=== PATIENT | female | born 1945 | race African-American/Black ===

== ENCOUNTER 2018-08-15 06:18 | Day surgery (SDC) | payer MEDICARE ==
[2018-08-15 06:42] VITALS: BMI 25.5
[2018-08-15] MEDS ORDERED: LIDOCAINE HCL 1%, 10 MG/ML (20ML VIAL) ONE (07:11)
[2018-08-15] MEDS ORDERED: DEXTROSE 50%-WATER - 25 GM/50 ML VIAL ONE (07:17)
[2018-08-15] MEDS ORDERED: PROPOFOL 20 ML ONE ×2 (07:25→09:35)
[2018-08-15] MEDS ORDERED: MIDAZOLAM HCL 2 MG/2 ML SINGLE DOSE VIAL ONE (07:26)
[2018-08-15] MEDS ORDERED: LIDOCAINE HCL/PF 2% SDV 5ML VIAL ONE (07:28)
[2018-08-15] MEDS ORDERED: SODIUM CHLORIDE 0.9% P/F 10 ML VIAL IJ ONE (07:28)
[2018-08-15] MEDS ORDERED: ceFAZolin SODIUM 1 GM VIAL ONE (07:28)
[2018-08-15] MEDS ORDERED: LIDOCAINE HCL 1%, 10 MG/ML (20ML VIAL) NR ONE ×2 (07:32→09:40)
[2018-08-15] MEDS ORDERED: BUPIVACAINE HCL/PF (5 MG/ML) 30 ML VIAL IJ ONE ×2 (07:33→09:40)
--- NOTE | 2018-08-15 09:07 | HP ---
Satellite H - Chief Complaint Chief Complaint: left wrist pain - Past Medical History Allergies/Adverse Reactions: Allergies Allergy/AdvReac Type Severity Reaction Status Date / Time No Known Allergies Allergy Verified 08/15/18 06:42 - Current Medications Current Medications: Home Medications Medication Instructions Recorded Atorvastatin Ca [Lipitor] 20 mg PO HS 01/16/16 Lisinopril [Prinivil] 10 mg PO DAILY 01/16/16 Cymbalta 10 mg PO DAILY 08/15/18 Glyburide-Metformin 5-500 mg 1 tab PO BID 08/15/18 Humulin 70/30 Kwikpen 8 units SCJ ONCE 08/15/18 Hydrocodone/Acetaminophen 1 each PO Q6H #20 tablet MDD 4 08/15/18 [Hydrocodone-Acetamin 5-325 mg] Insulin NPH Hum/Reg Insulin Hm 8 units SCJ DAILY 08/15/18 [Humulin 70/30 Kwikpen] Lantus 15 units SCJ HS 08/15/18 Satellite Physical Exam - Physical Examination Vital Signs: Vital Signs Period Temp Pulse Resp BP Sys/Perez Pulse Ox Last 24 Hr 98.2 F-98.2 F 100-100 20-20 101-101/71-71 100 General Appearance: Well Nourished, Well Developed, Alert & Oriented x3 ENT: Clear Lung: Normal air movement Heart: Regular rate & rhythm Extremities: Other (left wrist- + mass, + ttp 1st dorsal wrist compartment, + finkelsteins, nvi) Neurological: Intact, Alert, Oriented Satellite Impression/Plan - Impression/Plan Impression: left wrist ganglion, dequervains Operative Procedure: left wrist mass excision, dequervains release Date to be Performed: 08/15/18
[2018-08-15] MEDS ORDERED: KETOROLAC TROMETHAMINE 30 MG/1 ML VIAL ONE (09:31)
[2018-08-15] MEDS ORDERED: ceFAZolin SODIUM 1 GM VIAL IVPB ONE (09:32)
[2018-08-15] MEDS ORDERED: oxyCODONE HCL 5 MG TABLET PO PRN (09:51)
[2018-08-15] MEDS ORDERED: ONDANSETRON 4 MG/2 ML VIAL IVPUSH PRN (09:51)
[2018-08-15] MEDS ORDERED: LACTATED RINGERS SOLUTION 1,000 ML IV SCH (10:00)
--- NOTE | 2018-08-15 10:13 | OP ---
Operative Note - Note: Operative Date: 08/15/18 Pre-Operative Diagnosis: left Dequervain's and ganglio cyst Operation: left Dequervain's release, tendon sheath excision, ganglion cyst excision Post-Operative Diagnosis: Same as Pre-op Surgeon: Don Hardy Anesthesiologist/[employer] SUPERVISOR: Fawad Kaiser Anesthesia: Local, MAC Specimens Removed: ganglion cyst, tendon sheath Estimated Blood Loss (mls): 0 Drains, Volume Out (mls): 0 Blood Volume Replaced (mls): 0 Fluid Volume Replaced (mls): 500 Operative Report Dictated: Yes
--- NOTE | 2018-08-15 11:00 | SPEC ---
DATE OF OPERATION: 08/15/2018 PREOPERATIVE DIAGNOSES: Left De Quervain tenosynovitis and ganglion cyst. POSTOPERATIVE DIAGNOSES: Left De Quervain tenosynovitis and ganglion cyst. PROCEDURE: Left De Quervain release, tendon sheath excision, ganglion cyst excision. SURGEON: Don Hardy M.D. PROGRAM OR PROJECT ADMINISTRATOR: None. ANESTHESIOLOGIST: Severiano Kaiser CRNA. ANESTHESIA: MAC with local injection of 10 mL of 0.5% Marcaine and 1% Lidocaine mix. DRAINS: None. COMPLICATIONS: None. SPECIMEN: Tendon sheath with ganglion cyst, left wrist. BLOOD LOSS: None. BLOOD GIVEN: None. FLUID REPLACEMENT: 500 mL PlasmaLyte. INDICATIONS: This patient is a 72-year-old female with severe recurrent left De Quervain tenosynovitis and 2 ganglion cysts on top of the first dorsal wrist compartment tendon sheath. After understanding the potential risks, complications, alternatives, and benefits of surgery versus nonsurgical treatment, the patient elected to undergo this procedure. Specifically, the patient understands she may have temporary or permanent paresthesias and there is a chance of recurrence of a ganglion cyst. PROCEDURE: Patient was brought to the operating room, peripheral IV placed, IV sedation given. One gram of IV Ancef was given. MAC anesthesia was induced. The tourniquet was applied to the left arm. The entire care was done under 3.8 loop magnification. The left upper extremity was prepped and draped in a sterile fashion. A longitudinal incision was marked out with a marking pen. A mix of 10 mL of 0.5% Marcaine, 1% Lidocaine were injected in and around the surgical area. The left upper extremity was then elevated, exsanguinated with an Esmarch bandage and the tourniquet inflated to 250 mmHg. A No. 15 scalpel blade was utilized to make a longitudinal incision. Subcutaneous hemostasis was achieved with a bipolar cautery. Dissection was done with a Littler scissors down to the first dorsal wrist compartment. Great care was taken to directly visualize and preserve all crossing sensory branches of the sensory nerve. Under direct visualization, the first dorsal wrist compartment was visualized and it was freed up from some adhesions with a [place] elevator. Next, a fresh No. 15 scalpel blade was utilized to open up the first dorsal wrist compartment, starting proximally and going distally both with the No. 15 scalpel blade and also with a Littler scissors. The anatomy was seen to have multiple slips of the abductor pollicis longus and the extensor pollicis brevis was in its own tendon tunnel. This was also released and the wall between the two excised. The roof of the tunnel was excised. This was all passed off the field as specimen. The volar lip of the first dorsal wrist compartment was preserved to prevent volar subluxation. The release was completed both distally and proximally in both compartments. I was able to bring out all slips through the wound with a Ragnell retractor and there were no obvious points of compression. The area was copiously irrigated and washed out, again explored and I didn't see any other abnormal tissue. Two ganglion cysts were identified within the first dorsal wrist compartment tendon sheath. Some of it was dorsal to the EPL tendon sheath. This was excised in its entirety. Ganglion cyst-like fluid was removed. It was passed off the field as specimen. A portion of the EPL sheath was removed but most was left intact. The EPL was then tracking well as were the other 2 tendons. The area was copiously irrigated and washed out. Again inspected, and I did not see or feel any other abnormal tissue. Undyed 4-0 Vicryl was used to close the deep dermal layer. Final skin reapproximation was done with a running subcuticular 4-0 Biosyn stitch. The area was then washed and dried, covered with Steri-Strips, 4 x 4's, fluffs between the fingers, and a 4-inch ORTHO-GLASS splint was used. The tourniquet was taken down after a total operative time of 25 minutes. There were no complications during the case. The patient tolerated the procedure quite well and was brought to ambulatory recovery room in stable condition. Erlin [id number]
[2018-08-15 11:52] VITALS: PULSE 88; TEMP 97.6
[2018-08-15 12:31] VITALS: BP 132/70
--- NOTE | 2018-08-16 17:28 | PATH ---
Surgical Pathology Report Patient Name: ADI BRODY Med. Rec. #: [id number] /Age/Gender: 1945 (Age: 72) / F Account: [id number] Location: [facility] Taken: 08/15/2018 Received: 08/15/2018 Reported: 08/16/2018 Physicians: Don Hardy M.D. Specimen(s) Received LEFT HAND MASS AND TENDON SHEATH Clinical History Left hand excision of ganglion cyst Final Diagnosis HAND MASS AND TENDON SHEATH, LEFT, EXCISION: DENSE FIBROCONNECTIVE TISSUE WITH FOCAL MYXOID CHANGE CONSISTENT WITH GANGLION CYST. Electronically Signed Jocelyn Huggins M.D. Gross Description Received in formalin, labeled "left hand mass and tendon sheath" are 3 white, irregular portions of soft tissue measuring 1.0 x 1.0 x 0.3 cm in aggregate. The specimen is submitted in toto in one cassette. AMANDA/08/15/2018 jeffrey/08/15/2018
== END 2018-08-15 12:30 | disposition home or self-care (01) ==
LOC: JASU-SURG 06:18
PROVIDERS: ATTEND Orthopaedic Surgery
PROC: 0LB60ZZ Excision of Left Lower Arm and Wrist Tendon, Open Approach (ICD-10-PCS; principal; 2018-08-15 08:00)
PROC: 0LN60ZZ Release Left Lower Arm and Wrist Tendon, Open Approach (ICD-10-PCS; 2018-08-15 08:00)
DX: M65.4 Radial styloid tenosynovitis [de Quervain] (principal); M67.432 Ganglion, left wrist; I10 Essential (primary) hypertension; E11.9 Type 2 diabetes mellitus without complications; Z79.84 Long term (current) use of oral hypoglycemic drugs
CPT/HCPCS: 36415; 82947; 82962; 88304-TC; 94760

== ENCOUNTER 2020-10-29 13:13 | Inpatient (IN) | payer OTHER ==
[2020-10-29] MEDS ORDERED: SODIUM CHLORIDE 0.9% 500 ML INFUS.BAG IV ONE (13:52)
[2020-10-29 15:24] LABS: BASO % 0.7 % (0-2.0); EOS % 3.5 % (0-4.5); HEMATOCRIT 32.9 % (32.4-45.2); HEMOGLOBIN 11.2 GM/dL (10.7-15.3); LYMPH % 23.6 % (8-40); MCH 30.8 pg (25.7-33.7); MCHC 33.9 g/dl (32.0-36.0); MEAN CELL VOLUME 90.7 fl (80-96); MEAN PLT VOLUME 8.1 fl (7.5-11.1); MONO % 10.6 % (3.8-10.2); NEUT % 61.6 % (42.8-82.8); PLATELET COUNT 230 10^3/uL (134-434); RBC 3.63 M/mm3 (3.60-5.2); RDW 12.6 % (11.6-15.6); WHITE BLOOD COUNT 6.7 K/mm3 (4.0-10.0)
[2020-10-29 15:34] LABS: INR 0.93 (0.83-1.09); PROTHROMBIN TIME (PATIENT) 11.3 SEC (9.7-13.0)
[2020-10-29 15:37] LABS: ACTIVATED PTT 27.5 SECONDS (25.2-36.5)
[2020-10-29 15:50] LABS: CHLORIDE 109 mmol/L (98-107); SODIUM 143 mmol/L (136-145)
[2020-10-29 15:52] LABS: ALBUMIN 3.6 g/dl (3.4-5.0); CALCIUM 9.2 mg/dL (8.5-10.1)
[2020-10-29 15:53] LABS: ANION GAP 12 MMOL/L (8-16); BLOOD UREA NITROGEN 27.4 mg/dL (7-18); CO2 22 mmol/L (21-32); GLUCOSE,RANDOM 131 mg/dL (74-106); MAGNESIUM 1.5 mg/dL (1.8-2.4)
[2020-10-29 15:55] LABS: SGOT/AST 27 U/L (15-37); SGPT/ALT 25 U/L (13-61)
[2020-10-29 15:56] LABS: CREATININE 1.9 mg/dL (0.55-1.3); PHOSPHOROUS 3.2 mg/dL (2.5-4.9)
[2020-10-29 15:57] LABS: BILIRUBIN,TOTAL 0.2 mg/dL (0.2-1); TOT PROT 6.4 g/dl (6.4-8.2)
[2020-10-29 15:58] LABS: ALK PHOS 111 U/L (45-117)
[2020-10-29 16:53] LABS: EPI CELLS 16 /uL (0-25.1); HYALINE CASTS 2 /uL (0-3.1); PH,URINE 5.5 (5.0-8.0); URINE APPEARANCE CLEAR; URINE BACTERIA 100 /uL (0-1359); URINE BILIRUBIN NEGATIVE (NEGATIVE); URINE COLOR YELLOW; URINE GLUCOSE (UA) 1+ (NEGATIVE); URINE KETONE NEGATIVE (NEGATIVE); URINE LEUK ESTERASE TRACE (NEGATIVE); URINE NITRITE NEGATIVE (NEGATIVE); URINE PROTEIN TRACE (NEGATIVE); URINE RBC 2 /uL (0-23.9); URINE UROBILINOGEN 0.2 mg/dL (0.2-1.0); URINE WBC 18 /uL (0-25.8)
[2020-10-29] MEDS ORDERED: MAGNESIUM 1GM/D5W - 1 GM/100 ML IVPB IVPB ONE (17:00)
[2020-10-29 17:17] LABS: CALCIUM 8.9 mg/dL (8.5-10.1)
[2020-10-29 17:18] LABS: ALBUMIN 3.8 g/dl (3.4-5.0); BLOOD UREA NITROGEN 24.7 mg/dL (7-18); MAGNESIUM 1.3 mg/dL (1.8-2.4)
[2020-10-29 17:21] LABS: CREATININE 1.7 mg/dL (0.55-1.3)
[2020-10-29 17:23] LABS: BILIRUBIN,TOTAL 0.2 mg/dL (0.2-1); TOT PROT 6.5 g/dl (6.4-8.2)
[2020-10-29] MEDS ORDERED: ATORVASTATIN CA 40 MG TABLET (FP) PO SCH (22:00)
[2020-10-29] MEDS: SODIUM CHLORIDE 1,000 ML IV SCH (23:01)
[2020-10-29] MEDS: HEPARIN NA (PORCINE) 5,000 UNITS/ML 1ML VIAL SQ SCH (23:01)
[2020-10-29] MEDS: INSULIN SLIDING SCALE (NOVOLOG) 1 VIAL SQ SCH (23:09)
[2020-10-29 23:35] VITALS: BMI 26.9
[2020-10-30] MEDS: HEPARIN NA (PORCINE) 5,000 UNITS/ML 1ML VIAL SQ SCH ×3 (06:34→20:59)
[2020-10-30] MEDS: INSULIN SLIDING SCALE (NOVOLOG) 1 VIAL SQ SCH ×4 (06:34→21:00)
[2020-10-30 07:51] LABS: BASO % 0.2 % (0-2.0); EOS % 4.6 % (0-4.5); HEMOGLOBIN 11.4 GM/dL (10.7-15.3); LYMPH % 31.8 % (8-40); MCH 31.2 pg (25.7-33.7); MCHC 34.5 g/dl (32.0-36.0); MEAN CELL VOLUME 90.2 fl (80-96); MEAN PLT VOLUME 8.4 fl (7.5-11.1); MONO % 10.9 % (3.8-10.2); NEUT % 52.5 % (42.8-82.8); PLATELET COUNT 226 10^3/uL (134-434); RBC 3.66 M/mm3 (3.60-5.2); RDW 12.5 % (11.6-15.6); WHITE BLOOD COUNT 5.2 K/mm3 (4.0-10.0)
[2020-10-30 08:14] LABS: CALCIUM 8.6 mg/dL (8.5-10.1); MAGNESIUM 1.4 mg/dL (1.8-2.4)
[2020-10-30 08:16] LABS: ALBUMIN 3.5 g/dl (3.4-5.0); BLOOD UREA NITROGEN 16.8 mg/dL (7-18)
[2020-10-30 08:17] LABS: CREATININE 1.1 mg/dL (0.55-1.3)
[2020-10-30 08:18] LABS: TOT PROT 6.2 g/dl (6.4-8.2)
[2020-10-30 08:19] LABS: PHOSPHOROUS 3.2 mg/dL (2.5-4.9)
[2020-10-30 08:21] LABS: BILIRUBIN,TOTAL 0.4 mg/dL (0.2-1)
[2020-10-30] MEDS: ASPIRIN 81 MG CHEWABLE TABLETS PO SCH ×2 (08:27→11:27)
[2020-10-30] MEDS ORDERED: MAGNESIUM SULF 50% (8.12 MEQ/2 ML-1 GM VIAL) IVPB ONE ×2 (09:04→13:30)
[2020-10-30] MEDS: SODIUM CHLORIDE 1,000 ML IV SCH (11:26)
[2020-10-30] MEDS ORDERED: amLODIPine BESYLATE 5 MG TABLET (FP) PO ONE ×2 (11:37→17:25)
[2020-10-30] MEDS ORDERED: diazePAM 2 MG TABLET PO ONE (14:00)
[2020-10-30] MEDS ORDERED: PT OWN MED DRAWER 7, Y5N ONE (20:51)
[2020-10-30] MEDS ORDERED: INSULIN (NOVOLOG) ASPART 100 UNITS/ML 10ML VIAL ONE (20:51)
[2020-10-30] MEDS: ACETAMINOPHEN 325 MG TABLET (FP) PO PRN (20:57)
[2020-10-30] MEDS: ATORVASTATIN CA 80 MG TABLET (FP) PO SCH (20:59)
[2020-10-31] MEDS: HEPARIN NA (PORCINE) 5,000 UNITS/ML 1ML VIAL SQ SCH ×4 (05:33→21:07)
[2020-10-31] MEDS: INSULIN SLIDING SCALE (NOVOLOG) 1 VIAL SQ SCH ×4 (06:00→21:03)
[2020-10-31 08:49] LABS: BASO % 0.7 % (0-2.0); EOS % 3.6 % (0-4.5); HEMATOCRIT 37.7 % (32.4-45.2); LYMPH % 23.9 % (8-40); MCH 31.5 pg (25.7-33.7); MCHC 34.6 g/dl (32.0-36.0); MEAN PLT VOLUME 8.3 fl (7.5-11.1); MONO % 10.6 % (3.8-10.2); NEUT % 61.2 % (42.8-82.8); PLATELET COUNT 283 10^3/uL (134-434); RBC 4.14 M/mm3 (3.60-5.2); RDW 12.3 % (11.6-15.6); WHITE BLOOD COUNT 6.6 K/mm3 (4.0-10.0)
[2020-10-31 09:20] LABS: CALCIUM 8.9 mg/dL (8.5-10.1)
[2020-10-31 09:21] LABS: ALBUMIN 3.9 g/dl (3.4-5.0); BLOOD UREA NITROGEN 14.5 mg/dL (7-18); MAGNESIUM 1.7 mg/dL (1.8-2.4)
[2020-10-31 09:22] LABS: BILIRUBIN,TOTAL 0.5 mg/dL (0.2-1)
[2020-10-31 09:24] LABS: CREATININE 1.4 mg/dL (0.55-1.3); PHOSPHOROUS 2.7 mg/dL (2.5-4.9); TOT PROT 7.1 g/dl (6.4-8.2)
[2020-10-31] MEDS: ASPIRIN 81 MG CHEWABLE TABLETS PO SCH (10:04)
[2020-10-31] MEDS: amLODIPine BESYLATE 5 MG TABLET (FP) PO SCH (10:04)
[2020-10-31] MEDS: ACETAMINOPHEN 325 MG TABLET (FP) PO PRN (10:04)
[2020-10-31] MEDS ORDERED: SODIUM CHLORIDE 1,000 ML IV SCH (13:00)
[2020-10-31] MEDS ORDERED: MAGNESIUM 2GM/50ML STERILE WATER IVPB IVPB ONE (13:00)
[2020-10-31] MEDS ORDERED: diazePAM 2 MG TABLET PO ONE (13:15)
[2020-10-31] MEDS: ATORVASTATIN CA 80 MG TABLET (FP) PO SCH (21:01)
[2020-11-01] MEDS: INSULIN SLIDING SCALE (NOVOLOG) 1 VIAL SQ SCH ×2 (06:03→11:53)
[2020-11-01] MEDS: HEPARIN NA (PORCINE) 5,000 UNITS/ML 1ML VIAL SQ SCH ×2 (06:03→14:24)
[2020-11-01] MEDS: amLODIPine BESYLATE 5 MG TABLET (FP) PO SCH (09:23)
[2020-11-01] MEDS ORDERED: ASPIRIN COATED 81 MG TABLET.EC PO SCH (10:00)
[2020-11-01 14:24] VITALS: BP 150/85; PULSE 98; TEMP 98.3
[2020-11-01] MEDS: MAGNESIUM 2GM/50ML STERILE WATER IVPB IVPB ONE ×2 (14:24→14:44)
[2020-11-01] MEDS ORDERED: INSULIN SLIDING SCALE (NOVOLOG) 1 VIAL SQ SCH (16:30)
[2020-11-02] MEDS ORDERED: INSULIN (LEVEMIR) 100 UNITS/ML UNITS SQ SCH (07:00)
== END 2020-11-01 17:19 | disposition home or self-care (01) | DRG 68 ==
LOC: JER 13:13 → JERBED 19:29 → J6S 21:40
PROVIDERS: ATTEND Internal Medicine
DX: I65.22 Occlusion and stenosis of left carotid artery (principal); N17.9 Acute kidney failure, unspecified; I10 Essential (primary) hypertension; E78.00 Pure hypercholesterolemia, unspecified; E16.0 Drug-induced hypoglycemia without coma; T38.3X5A Adverse effect of insulin and oral hypoglycemic [antidiabetic] drugs, initial encounter; R62.7 Adult failure to thrive; Z68.26 Body mass index [BMI] 26.0-26.9, adult; E11.40 Type 2 diabetes mellitus with diabetic neuropathy, unspecified; R29.6 Repeated falls; I65.21 Occlusion and stenosis of right carotid artery; E83.42 Hypomagnesemia; Z96.641 Presence of right artificial hip joint
CPT/HCPCS: 36415; 70450-TC; 70551-TC; 71250-TC; 72125-TC; 72170-TC-FY; 80053; 80061; 81003; 82550; 82553; 82962; 83036; 83721; 83735; 84100; 84443; 84484; 85025; 85610; 85730; 86780; 87086; 87186; 93005; 93010; 93306-TC; 93880-TC; 97116-GP; 97161-GP; 99285-25; C9803; J1644; U0003; U0005

== ENCOUNTER 2022-03-21 05:46 | Emergency (ER) | payer OTHER ==
[2022-03-21 05:59] VITALS: BMI 28.6
[2022-03-21] MEDS ORDERED: ACETAMINOPHEN 500 MG TABLET (FP) PO ONE (07:30)
[2022-03-21] MEDS ORDERED: METHOCARBAMOL 500 MG TABLET PO ONE (07:30)
[2022-03-21] MEDS ORDERED: LIDOCAINE 5% TOPICAL PATCH TP ONE (07:30)
[2022-03-21] MEDS ORDERED: LIDOCAINE 5% TOPICAL PATCH ONE (08:25)
[2022-03-21] MEDS ORDERED: METHOCARBAMOL 500 MG TABLET ONE (08:25)
[2022-03-21] MEDS ORDERED: ACETAMINOPHEN 325 MG TABLET (FP) ONE (08:25)
[2022-03-21] MEDS ORDERED: KETOROLAC TROMETHAMINE 30 MG/1 ML VIAL IM ONE (09:19)
[2022-03-21] MEDS ORDERED: KETOROLAC TROMETHAMINE 30 MG/1 ML VIAL ONE (10:00)
[2022-03-21] MEDS ORDERED: oxyCODONE HCL 5 MG TABLET PO ONE (10:46)
[2022-03-21] MEDS ORDERED: oxyCODONE HCL 5 MG TABLET ONE ×2 (11:36→12:47)
[2022-03-21 13:37] VITALS: BP 144/82; PULSE 78; RESP 18; TEMP 98
[2022-03-21] MEDS ORDERED: LIDOCAINE PATCH REMOVAL MC ONE (20:00)
== END 2022-03-21 12:55 | disposition home or self-care (01) ==
LOC: JER 05:46
PROC: 3E023GC Introduction of Other Therapeutic Substance into Muscle, Percutaneous Approach (ICD-10-PCS; principal; 2022-03-21)
DX: M54.50 Low back pain, unspecified (principal)
CPT/HCPCS: 99284-25

== ENCOUNTER 2022-04-26 04:29 | Day surgery (SDC) | payer OTHER ==
[~2022-04-26 04:29] MED LIST: DEXAMETHASONE SOD PHOSPHATE 10 MG/1 ML VIAL IM ONE; DEXAMETHASONE SOD PHOSPHATE 10 MG/1 ML VIAL ONE; DEXAMETHASONE SOD PHOSPHATE 4 MG/1 ML VIAL ONE; IOHEXOL 180 MG/1 ML ML IJ ONE; LIDOCAINE 1% P/F 10 MG/ML VIAL INF ONE; LIDOCAINE HCL/PF 1% SDV 5ML VIAL ONE
[2022-04-26] MEDS ORDERED: DEXAMETHASONE SOD PHOSPHATE 10 MG/1 ML VIAL ONE (07:35)
[2022-04-26] MEDS ORDERED: LIDOCAINE HCL/PF 1% SDV 5ML VIAL ONE (07:35)
[2022-04-26 10:57] VITALS: BMI 63.1
[2022-04-26] MEDS ORDERED: LIDOCAINE 1% P/F 10 MG/ML VIAL INF ONE (13:34)
[2022-04-26] MEDS ORDERED: IOHEXOL 180 MG/1 ML ML IJ ONE (13:36)
[2022-04-26] MEDS ORDERED: DEXAMETHASONE SOD PHOSPHATE 10 MG/1 ML VIAL IM ONE (13:38)
[2022-04-26 14:21] VITALS: BP 137/87; PULSE 78; RESP 20; TEMP 98
== END 2022-04-26 14:20 | disposition home or self-care (01) ==
LOC: JASU-SURG 04:29
PROVIDERS: ATTEND Pain Medicine Pain Medicine
PROC: 3E0R3BZ Introduction of Anesthetic Agent into Spinal Canal, Percutaneous Approach (ICD-10-PCS; 2022-04-26)
PROC: 3E0R33Z Introduction of Anti-inflammatory into Spinal Canal, Percutaneous Approach (ICD-10-PCS; principal; 2022-04-26 12:00)
DX: M54.16 Radiculopathy, lumbar region (principal); M48.061 Spinal stenosis, lumbar region without neurogenic claudication
CPT/HCPCS: 76000-TC-FY; J1100

== ENCOUNTER 2022-05-24 04:18 | Day surgery (SDC) | payer OTHER ==
[2022-05-18 14:02] VITALS: BMI 28.6
[2022-05-24] MEDS ORDERED: DEXAMETHASONE SOD PHOSPHATE 4 MG/1 ML VIAL ONE (07:23)
[2022-05-24] MEDS ORDERED: LIDOCAINE HCL/PF 1% SDV 5ML VIAL ONE (07:23)
[2022-05-24] MEDS ORDERED: DEXAMETHASONE SOD PHOSPHATE 10 MG/1 ML VIAL ONE (07:24)
[2022-05-24] MEDS ORDERED: LIDOCAINE HCL 1% PRESERVATIVE FREE - 30ML VIAL IJ ONE (10:30)
[2022-05-24] MEDS ORDERED: IOHEXOL 180 MG/1 ML ML IJ ONE (10:30)
[2022-05-24] MEDS ORDERED: DEXAMETHASONE SOD PHOSPHATE 10 MG/1 ML VIAL IVPUSH ONE (10:31)
[2022-05-24 11:01] VITALS: BP 143/74; PULSE 94; RESP 16; TEMP 96.9
== END 2022-05-24 11:12 | disposition home or self-care (01) ==
LOC: JASU-SURG 04:18
PROVIDERS: ATTEND Pain Medicine Pain Medicine
PROC: 3E0R3BZ Introduction of Anesthetic Agent into Spinal Canal, Percutaneous Approach (ICD-10-PCS; 2022-05-24)
PROC: 3E0R33Z Introduction of Anti-inflammatory into Spinal Canal, Percutaneous Approach (ICD-10-PCS; principal; 2022-05-24 09:30)
DX: M54.16 Radiculopathy, lumbar region (principal)
CPT/HCPCS: 76000-TC-FY; 82962; J1100

== ENCOUNTER 2023-06-23 05:12 | Day surgery (SDC) | payer OTHER ==
[2023-06-20 13:37] VITALS: BMI 28.3
[2023-06-23] MEDS ORDERED: LIDOCAINE HCL/PF 1% SDV 5ML VIAL ONE (07:17)
[2023-06-23] MEDS ORDERED: DEXAMETHASONE SOD PHOSPHATE 10 MG/1 ML VIAL ONE (07:18)
[2023-06-23 10:28] VITALS: RESP 20
[2023-06-23] MEDS: LIDOCAINE HCL 1% PRESERVATIVE FREE - 30ML VIAL IJ ONE (10:56)
[2023-06-23] MEDS: IOHEXOL 180 MG/1 ML ML IJ ONE ×2 (11:01)
[2023-06-23] MEDS: DEXAMETHASONE SOD PHOSPHATE 10 MG/1 ML VIAL IM ONE ×2 (11:05)
[2023-06-23] MEDS ORDERED: ACETAMINOPHEN 500 MG TABLET (FP) PO PRN (11:41)
[2023-06-23 12:35] VITALS: BP 143/65; PULSE 104; TEMP 97.9
== END 2023-06-23 11:30 | disposition home or self-care (01) ==
LOC: JASU-SURG 05:12
PROVIDERS: ATTEND Pain Medicine Pain Medicine
PROC: 3E0R3BZ Introduction of Anesthetic Agent into Spinal Canal, Percutaneous Approach (ICD-10-PCS; 2023-06-23)
PROC: 3E0R33Z Introduction of Anti-inflammatory into Spinal Canal, Percutaneous Approach (ICD-10-PCS; principal; 2023-06-23 11:30)
DX: M54.16 Radiculopathy, lumbar region (principal)
CPT/HCPCS: 76000-TC-FY; J1100

== ENCOUNTER 2023-07-28 13:29 | Observation (INO) | payer OTHER ==
[2023-07-28 13:50] VITALS: BMI 28.6
[2023-07-28] MEDS ORDERED: ACETAMINOPHEN 325 MG TABLET (FP) ONE (15:13)
[2023-07-28] MEDS: ACETAMINOPHEN 325 MG TABLET (FP) PO ONE (15:15)
[2023-07-28 15:17] LABS: HEMATOCRIT 37.6 % (32.4-45.2); HEMOGLOBIN 12.3 GM/dL (10.7-15.3); MCH 30.7 pg (25.7-33.7); MCHC 32.8 g/dl (32.0-36.0); MEAN CELL VOLUME 93.9 fl (80-96); MEAN PLT VOLUME 8.2 fl (7.5-11.1); PLATELET COUNT 265 10^3/uL (134-434); WHITE BLOOD COUNT 10.4 K/mm3 (4.0-10.0)
[2023-07-28 15:37] LABS: CHLORIDE 109 mmol/L (98-107); POTASSIUM 4.1 mmol/L (3.5-5.1); SODIUM 137 mmol/L (136-145)
[2023-07-28 15:39] LABS: CALCIUM 9.2 mg/dL (8.5-10.1)
[2023-07-28 15:40] LABS: ALBUMIN 3.7 g/dl (3.4-5.0); ANION GAP 0 mmol/L (4-13); BLOOD UREA NITROGEN 21.8 mg/dL (7-18); CO2 29 mmol/L (21-32)
[2023-07-28 15:43] LABS: CREATININE 1.3 mg/dL (0.55-1.3); SGOT/AST 36 U/L (15-37); SGPT/ALT 23 U/L (13-61)
[2023-07-28 15:45] LABS: BILIRUBIN,TOTAL 0.4 mg/dL (0.2-1); TOT PROT 6.9 g/dl (6.4-8.2)
[2023-07-28 15:46] LABS: ALK PHOS 126 U/L (45-117)
[2023-07-28 15:51] LABS: GLUCOSE,RANDOM 37 mg/dL (74-106)
[2023-07-28 15:58] LABS: ANISOCYTOSIS 0; HELMET CELLS 0; HOWELL-JOLLY BODIES 0; MACROCYTOSIS 0; OVALOCYTE 0; ROULEAU 0; SICKELED CELLS 0; TARGET CELLS 0; TEAR DROP CELLS 0; TOXIC GRANULATION 0
[2023-07-28] MEDS ORDERED: DEXTROSE 50%-WATER 25 GM/50 ML DISP.SYRIN ONE ×2 (16:02→16:06)
[2023-07-28] MEDS: DEXTROSE 50%-WATER - 25 GM/50 ML VIAL IVPUSH ONE ×2 (16:05→16:15)
[2023-07-28] MEDS: GABAPENTIN 300 MG CAPSULE PO SCH (22:54)
[2023-07-28] MEDS: ATORVASTATIN CA 80 MG TABLET (FP) PO SCH (22:54)
[2023-07-28] MEDS ORDERED: GABAPENTIN 300 MG CAPSULE ONE (22:56)
[2023-07-28] MEDS ORDERED: ATORVASTATIN CA 80 MG TABLET (FP) ONE (22:56)
[2023-07-29 06:31] VITALS: TEMP 98.5
[2023-07-29 06:36] LABS: HEMATOCRIT 35.3 % (32.4-45.2); HEMOGLOBIN 11.5 GM/dL (10.7-15.3); MCH 30.5 pg (25.7-33.7); MCHC 32.5 g/dl (32.0-36.0); MEAN CELL VOLUME 93.8 fl (80-96); MEAN PLT VOLUME 7.9 fl (7.5-11.1); PLATELET COUNT 234 10^3/uL (134-434); RBC 3.76 M/mm3 (3.60-5.2); RDW 13.1 % (11.6-15.6); WHITE BLOOD COUNT 6.4 K/mm3 (4.0-10.0)
[2023-07-29] MEDS: INSULIN ASPART SLIDING SCALE (NOVOLOG) 1 VIAL SQ SCH ×2 (06:40→14:25)
[2023-07-29 07:22] LABS: ALBUMIN 3.4 g/dl (3.4-5.0)
[2023-07-29 07:23] LABS: BLOOD UREA NITROGEN 20.2 mg/dL (7-18)
[2023-07-29 07:25] LABS: CREATININE 1.3 mg/dL (0.55-1.3)
[2023-07-29 07:27] LABS: BILIRUBIN,TOTAL 0.6 mg/dL (0.2-1)
[2023-07-29] MEDS ORDERED: amLODIPine BESYLATE 5 MG TABLET (FP) ONE (09:25)
[2023-07-29] MEDS ORDERED: LISINOPRIL 20 MG TABLET ONE (09:25)
[2023-07-29] MEDS ORDERED: ASPIRIN COATED 81 MG TABLET.EC ONE (09:25)
[2023-07-29] MEDS ORDERED: ENOXAPARIN NA (PORCINE) 40 MG/0.4 ML DISP.SYRIN SQ ONE (09:26)
[2023-07-29] MEDS ORDERED: GABAPENTIN 300 MG CAPSULE ONE (09:26)
[2023-07-29] MEDS: ASPIRIN COATED 81 MG TABLET.EC PO SCH (09:35)
[2023-07-29] MEDS: amLODIPine BESYLATE 5 MG TABLET (FP) PO SCH (09:36)
[2023-07-29] MEDS: ENOXAPARIN NA (PORCINE) 40 MG/0.4 ML DISP.SYRIN SQ SCH (09:36)
[2023-07-29] MEDS: LISINOPRIL 20 MG TABLET PO SCH (09:36)
[2023-07-29 09:40] VITALS: RESP 16
[2023-07-29 12:18] VITALS: BP 110/79; PULSE 88
== END 2023-07-29 15:24 | disposition home health service (06) ==
LOC: JER 13:29 → JERBED 17:39
PROVIDERS: ADMIT Internal Medicine; ATTEND Internal Medicine
PROC: 3E0337Z Introduction of Electrolytic and Water Balance Substance into Peripheral Vein, Percutaneous Approach (ICD-10-PCS; principal; 2023-07-28)
PROC: 3E023GC Introduction of Other Therapeutic Substance into Muscle, Percutaneous Approach (ICD-10-PCS; 2023-07-28)
DX: E11.649 Type 2 diabetes mellitus with hypoglycemia without coma (principal); R29.6 Repeated falls; W18.39XA Other fall on same level, initial encounter; Y93.89 Activity, other specified; Y92.038 Other place in apartment as the place of occurrence of the external cause; I10 Essential (primary) hypertension; E78.5 Hyperlipidemia, unspecified; I65.29 Occlusion and stenosis of unspecified carotid artery; K76.0 Fatty (change of) liver, not elsewhere classified; M54.9 Dorsalgia, unspecified; G89.29 Other chronic pain; R20.2 Paresthesia of skin
CPT/HCPCS: 36415; 70450-TC; 71046-TC-FY; 72125-TC; 72170-TC-FY; 80053; 80061; 82962; 83036; 84484; 85025; 85027; 93005; 93010; 96360; 96361; 96372; 99291; G0378

== ENCOUNTER 2024-09-27 06:51 | Day surgery (SDC) | payer OTHER ==
[2024-09-26 12:02] VITALS: BMI 24.0
[2024-09-27 07:00] VITALS: TEMP 97.7
[2024-09-27] MEDS ORDERED: LIDOCAINE HCL/PF 1% SDV 5ML VIAL ONE (07:39)
[2024-09-27] MEDS: LIDOCAINE HCL 1% PRESERVATIVE FREE - 30ML VIAL IJ ONE (08:12)
[2024-09-27] MEDS ORDERED: ACETAMINOPHEN 500 MG TABLET (FP) PO PRN (08:29)
[2024-09-27 09:35] VITALS: BP 123/81; PULSE 85; RESP 18
== END 2024-09-27 09:10 | disposition home or self-care (01) ==
LOC: JASU-SURG 06:51
PROVIDERS: ATTEND Pain Medicine Pain Medicine
PROC: 01HY3MZ Insertion of Neurostimulator Lead into Peripheral Nerve, Percutaneous Approach (ICD-10-PCS; principal; 2024-09-27 08:30)
DX: G89.4 Chronic pain syndrome (principal)
CPT/HCPCS: 64555; C1778